=== PATIENT | female | born 1940 | race Hispanic/Latino ===

== ENCOUNTER 2017-09-24 12:30 | Emergency (ER) | payer OTHER ==
[~2017-09-24 12:30] MED LIST: ALEN70TA47 PO; ATOR10 PO; BIFI4CAP PO; CEFD300C3 PO; OMEP40CA37 PO; TRAM50TA4 PO; VALS80TA2 PO
[2017-09-24] MEDS ORDERED: NITROGLYCERIN 0.4 MG SL TAB SL ONE (12:56)
[2017-09-24 13:02] LABS: BASOPHILS % (AUTO) 0.9 % (0.0-5.0); EOSINOPHILS % (AUTO) 17.5 % (0.0-8.0); LYMPHOCYTES % (AUTO) 15.1 % (21.0-51.0); MEAN CORPUSCULAR HEMOGLOBIN 32.1 pg (27.0-33.0); MEAN CORPUSCULAR HGB CONC 34.6 g/dL (32.0-36.0); MEAN CORPUSCULAR VOLUME 92.6 fL (79-99); MONOCYTES % (AUTO) 8.6 % (3.0-13.0); NEUTROPHILS % (AUTO) 57.9 % (40.0-77.0); PLATELET COUNT (AUTO) 214 K/uL (130-400); RED BLOOD CELL COUNT(AUTO) 4.21 MIL/uL (4.00-5.50); RED CELL DISTRIBUTION WIDTH 13.8 % (11.0-15.5); WHITE BLOOD COUNT (AUTO) 9.9 K/uL (4.8-10.8)
[2017-09-24 13:12] LABS: CREATININE 0.8 mg/dL (0.5-1.5)
[2017-09-24 13:17] LABS: ALBUMIN 3.5 g/dL (3.5-5.0); BILIRUBIN,TOTAL 0.2 mg/dL (0.2-1.0); TOTAL PROTEIN, SERUM 7.7 g/dL (6.0-8.3)
[2017-09-24] MEDS ORDERED: LABETALOL HCL 5 MG/ML 20ML VIAL IV ONE (13:48)
== END 2017-09-24 14:25 | disposition home or self-care (01) ==
LOC: EDH 12:30
DX: R07.89 Other chest pain (principal); E78.5 Hyperlipidemia, unspecified; I10 Essential (primary) hypertension; K21.9 Gastro-esophageal reflux disease without esophagitis
CPT/HCPCS: 36415; 71045; 80053; 84484; 85025; 93005; 96374; 99285; J3490

== ENCOUNTER 2023-08-06 17:17 | Emergency (ER) | payer OTHER ==
[~2023-08-06] VITALS: Ht 160 cm; Wt 95.3 kg
[~2023-08-06 17:17] MED LIST changes: +ACET-66 PO; -ALEN70TA47 PO; +ASPI-556 PO; -ATOR10 PO; -BIFI4CAP PO; -CEFD300C3 PO; +CIPR500S4 PO; +CYAN-52 PO; +GABA-529 PO; +LOSA50TA64 PO; +NAPR-1023 PO; +OMEP40CA21 PO; -OMEP40CA37 PO; +ONDA4TAB10 PO; +RANI300C PO; +SERT-439 PO; -TRAM50TA4 PO; -VALS80TA2 PO
[2023-08-06] MEDS ORDERED: HYDROCODONE/ACETAMINOPHEN 5/325 MG TAB PO ONE (17:30)
[2023-08-06] MEDS ORDERED: HYDROXYZINE 25 MG TABLET PO ONE (17:30)
[2023-08-06] MEDS ORDERED: MORPHINE 2 MG SYG IVP ONE (18:30)
[2023-08-06] MEDS ORDERED: ACET-2079 PO (18:35)
[2023-08-06] MEDS ORDERED: NAPR-1196 PO (18:35)
[2023-08-06 19:00] VITALS: BP 125/78; PULSE 78; RESP 18; O2SAT 98
== END 2023-08-06 19:14 | disposition home or self-care (01) ==
LOC: EDH 17:17
DX: S62.616A Displaced fracture of proximal phalanx of right little finger, initial encounter for closed fracture (principal); M19.90 Unspecified osteoarthritis, unspecified site; J45.909 Unspecified asthma, uncomplicated; E78.00 Pure hypercholesterolemia, unspecified; I10 Essential (primary) hypertension; Z79.82 Long term (current) use of aspirin; Z79.899 Other long term (current) drug therapy; W01.0XXA Fall on same level from slipping, tripping and stumbling without subsequent striking against object, initial encounter; Y93.89 Activity, other specified; Y92.89 Other specified places as the place of occurrence of the external cause; Y99.8 Other external cause status
CPT/HCPCS: 99284; 26770; 96374; 73130; 73120; J2270

== ENCOUNTER 2025-01-29 14:02 | Observation (INO) | payer OTHER, MEDICAID ==
[~2025-01-29] VITALS: Ht 160 cm; Wt 94.6 kg
[~2025-01-29 14:02] MED LIST changes: -ACET-66 PO; +ALEN70TA80 PO; +AMLO5TAB4 PO; -ASPI-556 PO; +ATOR10 PO; +BALS60OI TP; -CIPR500S4 PO; -CYAN-52 PO; +DOXY100T2 PO; +EMPA10TA PO; +FLUT8AER3 IH; -GABA-529 PO; +LACT1CAP79 PO; +LEVO-70 PO; +LISI10TA24 PO; -LOSA50TA64 PO; -NAPR-1023 PO; -OMEP40CA21 PO; -ONDA4TAB10 PO; +PILOC5 PO; -RANI300C PO
--- NOTE | 2025-01-29 16:35 | HMCIMG ---
EXAM: CR left hip, 3 View. CLINICAL HISTORY: persistent pain unable to bear weight COMPARISON: None provided. FINDINGS: Spondylosis of the visualized lower lumbar spine. Moderate to severe bilateral sacroiliac joint, and mild bilateral hip and pubic symphyseal joint osteoarthritis. There is no displaced fracture or evidence of periostitis. Atherosclerotic vascular calcifications are noted. IMPRESSION: 1. No acute osseous injury. 2. 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 /[place]
--- NOTE | 2025-01-29 18:24 | ERN ---
General Chief Complaint: Upper Extremity Pain/Injury Stated Complaint: LT ARM,HIP,AND LEG PAIN Time Seen by MD: 15:26 Time Seen by Midlevel: 15:26 Source: patient History of Present Illness Initial Comments The patient is an 84-year-old female presenting to the emergency department for evaluation of severe left-sided hip pain. The patient states she was dancing yesterday. However, the pain started after she lifted something heavy. She states the pain starts on her left hip and radiates down her left leg. She is unable to ambulate secondary to pain. She reports having a history of osteoporosis and is taking alendronate. She denies any direct injury to the area. Allergies: Coded Allergies: No Known Allergies (Unverified Allergy, Unknown, 04/16/14) Home Meds Active Scripts Lisinopril (Lisinopril) 10 Mg Tablet, 10 MG PO DAILY, #60 TAB Prov:SOLITARIO [employer]EN [employer]ING C[employer]TER 07/07/24 Amlodipine Besylate (Norvasc 5Mg Tab) 5 Mg Tablet, 5 MG PO DAILY, #60 TAB Prov:SOLITARIO ALLEN [employer] C[employer] 07/07/24 Reported Medications Fluticasone/Salmeterol (Advair Hfa 230-21 Mcg Inhaler) 230 Mcg-21 Mcg/Actuation Hfa.aer.ad, 2 PUFF IH BID, #12 GM 0 Refills 07/04/24 Empagliflozin (Jardiance) 10 Mg Tablet, 1 TAB PO DAILY for 30 Days, #30 TAB 0 Refills 07/04/24 Pilocarpine HCl (Salagen) 5 Mg Tab, 1 TAB PO BID for 30 Days, #90 TAB 0 Refills 07/04/24 Atorvastatin Calcium (LIPITOR) 10 Mg Tab, 1 TAB PO HS for 30 Days, #30 TAB 0 Refills 07/04/24 Sertraline HCl (Sertraline HCl) 50 Mg Tablet, 50 MG PO DAILY, TAB 09/20/18 Discontinued Reported Medications Alendronate Sodium (Alendronate Sodium) 70 Mg Tablet, 1 TAB PO QWEEK for 28 Days, #4 TAB 0 Refills in the morning, at least 30 minutes before the first food, beverage, or medication of the day 07/04/24 Discontinued Scripts Levofloxacin (Levofloxacin) 500 Mg Tablet, 1 TAB PO DAILY for 7 Days, #7 TAB 0 Refills Prov:SOLITARIO [employer]EN [employer] 07/07/24 Doxycycline Hyclate (Doxycycline Hyclate) 100 Mg Tablet, 100 MG PO BID, #8 TAB Prov:SOLITARIO ALLEN [employer] C[employer] 07/07/24 Lactobacillus Rhamnosus GG (Culturelle) 15 Billion Cell Cap.sprink, 1 EACH PO DAILY, #60 CAP.SPRINK Prov:SOLITARIO ALLEN [employer] 07/07/24 Balsam [place] Oil (Venelex Ointment) 60 Gm Oint...g., 0 GM TP BID, #60 TUBE bid to affected area Prov:SOLITARIO ALLEN P[employer]ING C[employer]TER 07/07/24 Past Medical History Past Medical History: Arthritis, Asthma, High Cholesterol, Hypertension Past Surgical History: None Social History Social History: Negative Female( History) History: Not Applicable ROS Dictation CONSTITUTIONAL: Negative except for HPI HEAD/FACE: Negative except for HPI EENT: Negative except for HPI RESPIRATORY: Negative except for HPI GASTROINTESTINAL/ABDOMINAL: Negative except for HPI GENITOURINARY: Negative except for HPI MUSCULOSKELETAL: Negative except for HPI INTEGUMENTARY: Negative except for HPI NEUROLOGICAL/PSYCH: Negative except for HPI HEMATOLOGIC/LYMPHATIC: Negative except for HPI All Systems Negative, Except as noted above. 13 point review of systems assessed and all negative except for above. Physical Exam Physical Exam Dictation PHYSICAL EXAM: GENERAL: alert,, awake oriented x 3 HEENT: EOMI, Sclera non icteric, moist mucosa NECK: Supple, no JVD, trachea midline LUNGS: Clear breath sounds bilaterally. No wheezes HEART: Regular rate and rhythm. Normal S1 and S2, without murmurs ABD: Abdomen soft, nontender. Bowel sounds present EXT: No clubbing or cyanosis, NEURO: Alert and oriented to person, follows commands Results Laboratory and Microbiology Lab and Micro Result Laboratory Tests Test 01/29/25 18:19 White Blood Count 12.9 K/uL (4.8-10.8) H Red Blood Count 3.80 MIL/uL (4.00-5.50) L Hemoglobin 12.0 g/dL (12.0-16.0) Hematocrit 35.6 % (36-48) L Mean Corpuscular Volume 93.7 fL (79-99) Mean Corpuscular Hemoglobin 31.6 pg (27.0-33.0) Mean Corpuscular Hemoglobin Concent 33.7 g/dL (32.0-36.0) Red Cell Distribution Width 13.5 % (11.0-15.5) Platelet Count 172 K/uL (130-400) Mean Platelet Volume 12.4 fL (7.5-10.5) H Immature Granulocyte % (Auto) 0.5 % (0-1) Neutrophils (%) (Auto) 74.5 % (40.0-77.0) Lymphocytes (%) (Auto) 14.9 % (21.0-51.0) L Monocytes (%) (Auto) 9.2 % (3.0-13.0) Eosinophils (%) (Auto) 0.7 % (0.0-8.0) Basophils (%) (Auto) 0.2 % (0.0-5.0) Neutrophils # (Auto) 9.6 K/uL (1.8-7.7) H Lymphocytes # (Auto) 1.9 K/uL (1.0-4.8) Monocytes # (Auto) 1.2 K/uL (0.1-1.0) H Eosinophils # (Auto) 0.09 K/uL (0.00-0.70) Basophils # (Auto) 0.03 K/uL (0.00-0.20) Absolute Immature Granulocyte (auto 0.06 K/uL (0-1) Nucleated Red Blood Cells 0.0 % (0.0-0.19) Sodium Level 142 mmol/L (136-145) Potassium Level 3.6 mmol/L (3.5-5.1) Chloride Level 104 mmol/L (101-111) Carbon Dioxide Level 29 mmol/L (21-32) Blood Urea Nitrogen 15 mg/dL (7-18) Creatinine 0.8 mg/dL (0.5-1.0) Glomerular Filtration Rate Calc 74 mL/min (>90) Random Glucose 123 mg/dL (70-105) H Hemoglobin A1c 6.0 % (4.0-6.0) Estimated Average Glucose (eAG) 126 mg/dL (70-126) Total Calcium 9.1 mg/dL (8.5-10.1) Magnesium Level 1.70 mg/dL (1.80-2.40) L Troponin I High Sensitivity 12 ng/L (4-50) B-Type Natriuretic Peptide 233 pg/mL (0-100) H Labs Reviewed?: Yes EKG/XRAY/US/CT/MRI CT Scan Comment REASON: Herniated disc ? lumbar radiculopathy ORDERING PHYSICIAN: AIME RAMIREZ MD PROCEDURE: L SPIN WO - CT LUMBAR SPINE W/O CONTRAST EXAM: CT Lumbar Spine Without IV Contrast CLINICAL HISTORY: Patient presents with suspected herniated disc and lumbar radiculopathy. TECHNIQUE: Spiral axial CT images through the lumbar spine were acquired, reconstructed in axial and sagittal projections, and imaged using soft tissue and bone algorithms. Reformatted/MPR images were performed. CT scan is done according to ALARA (As Low as Reasonably Achievable). CONTRAST: None. COMPARISON: None provided. FINDINGS: No acute fracture. Normal lordotic curvature. Normal vertebral body and disc heights. Mild diffuse osteopenia. Moderate lumbar spondylosis with multilevel marginal osteophytes, facet arthropathy and degenerative disc disease. Grade I degenerative retrolisthesis of L1 over L2. Grade I degenerative anterolisthesis of L5 over S1. The surrounding soft tissues are unremarkable. Individual spinal levels are described as follows: T12-L1: No disc bulge or herniation. No neural foraminal, lateral recess or spinal canal stenosis. L1-L2: 4 mm diffuse disc bulge. Moderate right lateral recess and neural foraminal stenosis. No spinal canal stenosis. L2-L3: 4 mm diffuse disc bulge. Mild bilateral lateral recess and neural foramina stenosis. Mild spinal canal stenosis. L3-L4: 3-4 mm diffuse disc bulge with 5 mm postero-central disc protrusion causing thecal sac indentation. Bilateral ligamentum flavum and facet hypertrophy. Moderate bilateral lateral recess and mild bilateral neural foraminal stenosis. Mild spinal canal stenosis. L4-L5: 4 mm diffuse disc bulge. Mild bilateral lateral recess and neural foraminal stenosis. No spinal canal stenosis. L5-S1: 2 mm diffuse disc bulge. No lateral recess, neural foraminal or spinal canal stenosis. Atheromatous vascular calcification in the intra-abdominal aorta. Incidental uncomplicated colonic diverticulosis and mild cystitis. IMPRESSIONS: Moderate lumbar spondylosis with multilevel marginal osteophytes, facet arthropathy and degenerative disc disease. Grade I degenerative retrolisthesis of L1 over L2. Grade I degenerative anterolisthesis of L5 over S1. Mild diffuse osteopenia. Diffuse disc bulges from L1-L2 through L5-S1. 5 mm postero-central disc protrusion at L3-L4. Moderate right lateral recess and neural foraminal stenosis at L1-L2. Mild bilateral lateral recess and neural foraminal stenosis at L2-L3. Moderate bilateral lateral recess and mild bilateral neural foraminal stenosis at L3-L4. Mild bilateral lateral recess and neural foraminal stenosis at L4-L5. Mild spinal canal stenosis at L2-L3 and L3-L4. Incidental uncomplicated colonic diverticulosis and mild cystitis. /[place] DICTATED BY: EMILIANA HARDIN Jr., MD DATE: 01/30/2527 ELECTRONICALLY SIGNED BY: EMILIANA HARDIN Jr., MD DATE: 01/30/2527 [facility] The patient is an 84-year-old female presenting to the emergency department for evaluation of severe left-sided hip pain. The patient states she was dancing yesterday. However, the pain started after she lifted something heavy. She states the pain starts on her left hip and radiates down her left leg. She is unable to ambulate secondary to pain. She reports having a history of osteoporosis and is taking alendronate. She denies any direct injury to the area. On physical examination the patient has restricted range motion of the left hip secondary to pain. She has some mild swelling to her left lower extremity. Distal pulses intact. An x-ray was performed which reveals no acute osseous injury however there is moderate to severe bilateral sacroiliac joint osteoarthritis with mild bilateral hip and pubic symphysis osteoarthritis. This could explain her current symptoms however the patient is unable to ambulate so I have ordered a CT scan of the pelvis without contrast to rule out a hairline fracture. During my repeat examination the family member at bedside was now concerned that she has been noticing an increase in swelling to the patient's lower extremities. I went ahead and ordered basic blood work including cardiac enzymes. Blood work is pending at this time we will transition care to incoming physician ED Course Orders Procedure Category Date Status Time Hip Unilat 2-3vw Left RAD 01/29/25 Resulted 15:36 Morphine 2mg Syg PHA 01/29/25 Complete (Morphine 2mg Syg) 16:00 Cbc With Differential LAB 01/29/25 Complete 17:23 Basic Metabolic Panel LAB 01/29/25 Complete 17:23 B-Type Natriuretic LAB 01/29/25 Complete Peptide 17:23 Troponin I High LAB 01/29/25 Complete Sensitivity 17:23 Magnesium LAB 01/29/25 Complete 17:23 Ct Pelvis W/O Contrast CT 01/29/25 Resulted 17:23 Ketorolac PHA 01/29/25 Complete Tromethamine 30mg/Ml 19:30 Methylprednisolone PHA 01/29/25 Complete Succ 40mg (Solu-Medro 19:30 Cyclobenzaprine Hcl PHA 01/29/25 Complete (Cyclobenzaprine Hcl 19:30 Current Medications Medications (Trade) Dose Ordered Sig/Flavio Route PRN Reason Start Time Stop Time Status Last Admin Dose Admin Cyclobenzaprine HCl (Cyclobenzaprine HCl) 5 mg ONCE PO 01/29/25 19:30 01/29/25 23:30 DC 01/29/25 19:34 Ketorolac Tromethamine (toRADol) 30 mg ONCE IVP 01/29/25 19:30 01/29/25 21:27 DC 01/29/25 19:34 Methylprednisolone Sodium Succinate (Solu-medROL 40MG) 40 mg ONCE IVP 01/29/25 19:30 01/29/25 21:30 DC 01/29/25 19:34 Morphine Sulfate (morPHINE 2MG SYG) 2 mg ONCE IM 01/29/25 16:00 01/29/25 20:00 DC 01/29/25 15:50 Vital Signs Date Time Temp Pulse Resp B/P (MAP) Pulse Ox O2 Delivery O2 Flow Rate FiO2 01/29/25 17:31 98.4 91 20 146/70 98 Room Air* 0 21 01/29/25 14:04 98.4 91 20 146/70 98 Room Air 6,40 pm- patient signed out to me by AM physician Dr. Valiente. Dependently reviewed the history and verified the labs and x-rays. Labs showed a white count of 12.9 hemoglobin of 12 next BNP 7 was relatively within normal limits glucose was 126 magnesium was 1.7. Patient had a pelvic CT that was pending at the time of sign-out 7:[address] pelvis still pending Patient lives by herself so I recommended admission and evaluation by physical therapy and perhaps also see if the patient needs any DME like wheelchair etcetera Patient and daughters were agreeable . My evaluation I firmly believe that patient had a lumbar pathology with the herniated discs and perhaps sciatica and radiculopathy and hence lumbar CT was also requested. 9.11 pm- [facility] accepted the patient for admission to hospitalist group. Problem List Problem Lists: (1) Intractable back pain (2) Lumbar back pain with radiculopathy affecting left lower extremity (3) Lumbar paraspinal muscle spasm DX & DISP Disposition: Inpatient Departure Impression: Primary Impression: Lumbar back pain with radiculopathy affecting left lower extremity Additional Impressions: Intractable back pain, Lumbar paraspinal muscle spas m Condition: Stable Additional Instructions: Patient was informed of all the diagnostic labs and procedures conducted in the emergency room today and demonstrated understanding of the results. I personally reviewed and interpreted all the diagnostic exams performed in the ER today. The patient will be admitted to the hospital for further treatment and evaluation. Disposition-admit to facility Condition-stable/guarded Course-uncertain at this time Pain status-decreased Assessment-exam unchanged Admission Certification- I certify that the patients status is appropriate and is based on my best clinical judgment and the patient's condition as documented in the medical records Referrals: CLARA MCKINNEY DO (PCP) I have reviewed the case, and I agree with, Diagnosis and Plan JESUS FERREIRA Jan 29, 2025 18:24 AIME RAMIREZ MD Jan 29, 2025 20:56
[2025-01-29 18:28] LABS: IMMATURE GRANULOCYTE ABSOLUTE 0.06 K/uL (0-1); NUCLEATED RED BLOOD CELLS 0.0 % (0.0-0.19); PLATELET COUNT (AUTO) 172 K/uL (130-400); RED BLOOD CELL COUNT(AUTO) 3.80 MIL/uL (4.00-5.50); RED CELL DISTRIBUTION WIDTH 13.5 % (11.0-15.5); WHITE BLOOD COUNT (AUTO) 12.9 K/uL (4.8-10.8)
[2025-01-29 18:38] LABS: CREATININE 0.8 mg/dL (0.5-1.0); GLOMERULAR FILTR. RATE CALC 74.0 mL/min (>90); GLUCOSE,RANDOM 123.0 mg/dL (70-105); SODIUM SERUM 142.0 mmol/L (136-145); UREA NITROGEN, BLOOD 15.0 mg/dL (7-18)
[2025-01-29] MEDS: CYCLOBENZAPRINE HCL 10 MG TABLET PO SCH (19:34)
[2025-01-29] MEDS: Solu-medROL 40MG VIAL IVP SCH (19:34)
--- NOTE | 2025-01-29 19:36 | HMCIMG ---
EXAM: CT Pelvis without Intravenous Contrast. CLINICAL HISTORY: R/O OCCULT FRACTURE TECHNIQUE: Axial computed tomography images of the pelvis without without intravenous contrast. CONTRAST: None. COMPARISON: None provided. FINDINGS: HIP JOINTS: No dislocation. The joint spaces are normal. BONES: Moderate degenerative changes. Involving both hips, both sacroiliac joints left side greater than right No evidence of occult fracture SOFT TISSUES: No hematoma IMPRESSION: 1. Moderate degenerative changes. 2. No evidence of occult fracture 3. No hematoma /[place]
--- NOTE | 2025-01-29 21:23 | HP ---
[facility] HISTORY AND PHYSICAL Date of Service: Jan 29, 2025 Time of Service: 21:23 CLARA MCKINNEY DO (PCP) Attending/supervising physicians: Dr. Desai and Dr. Jing Menendez HISTORY OF PRESENT ILLNESS: Ms. Glez is an 84-year-old female with hx of hypertension, hyperlipidemia, obesity, asthma, osteoporosis, and osteoarthritis who [place] [facility] [place] evaluation of severe mid low back pain and left-sided hip pain onset yesterday after she lifted something heavy. She stated the pain starts on her low back and radiated to left hip down her left leg. She is unable to ambulate secondary to pain. She denied any direct injury to the area. ED provider reported that on physical examination the patient has restricted range motion of the left hip secondary to pain. She has some mild swelling to her left lower extremity. Distal pulses intact. An x-ray was performed which reveals no acute osseous injury however there is moderate to severe bilateral sacroiliac joint osteoarthritis with mild bilateral hip and pubic symphysis osteoarthritis. During my repeat examination the family member at bedside was now concerned that she has been noticing an increase in swelling to the patient's lower extremities. CT pelvis: Moderate degenerative changes. No evidence of occult fracture. No hematoma. Left hip x-ray: 1. No acute osseous injury. 2. 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 Remarkable lab results: WBCs 12.9, RBC 3.80, hematocrit 35.5, glucose 123, GFR 74, magnesium 1.7, BNP 233. In ED the patient received Flexeril, Solu-Medrol, Toradol, morphine. ED physician reports concerned of the patient's intractable pain. ED physician states the patient lives alone and the patient is not comfortable going home with the pain. ED physician reports the patient was handed off to her and during her evaluation the pain was more to the lower back therefor she ordered a CT lumbar which is pending. She requested patient be admitted to the hospital for observation for intractable lumbar back pain with radiculopathy affecting left lower extremity and lumbar paraspinal muscle spasm. The patient was admitted under the [facility] hospitalist team. I assessed the patient at bedside in ER 1. No family member at bedside. The patient was lying in the stretcher, appeared comfortable, was smiling, eating a sandwich, and appeared in no distress. I informed her of a labs, diagnostics, and plan of care. She verbalized understanding and is in agreement with the plan. Plan and assessment are listed below. REVIEW OF SYSTEMS 12-point ROS reviewed with patient. All pertinent mentioned above. Otherwise negative, noncontributory, non-pertinent. PAST MEDICAL HISTORY: [Hypertension, hyperlipidemia, arthritis, osteoporosis, obesity, asthma, osteoarthritis of the knee ] PAST SURGICAL HISTORY: [Patient denies any history of significant surgery ] PAST SOCIAL HISTORY: [ Currently denies any active smoking or alcohol consumption, uses a rolling walker to walk, lives by herself at home, independent with ADLs] FAMILY HISTORY: [Denies pertinent family history ] Coded Allergies: No Known Allergies (Unverified Allergy, Unknown, 04/16/14) PHYSICAL EXAM GENERAL APPEARANCE: The patient is awake, alert, and oriented, in no acute cardiopulmonary distress. NEUROLOGICAL: Cranial nerves II-XII grossly intact. Motor is 5/5 in bilateral upper and lower extremities proximal to distal. No sensory deficits. HEENT: Face is symmetric. Pupils are equal and reactive. Extraocular movements are intact. NECK: Supple. No JVD. No thyromegaly. No submental, submandibular, pre- /postauricular, occipital or supraclavicular lymphadenopathy. CHEST: Normal chest expansion. No Telemetry. LUNGS: Absence of any rales, rhonchi or any wheezing. CARDIOVASCULAR: Regular. S1 and S2 normal. No appreciable rubs, murmurs or gallops. ABDOMEN: Soft, obese, nontender, and nondistended. There is no rebound, voluntary guarding, or rigidity. : Deferred. No Spence. EXTREMITIES: Non-edematous and not cyanotic. No clubbing. Good capillary refill. SKIN: No skin breakdown. Vital Sign (Last 24 Hours) 01/29/25 17:31 Temp 98.4 Pulse 91 Resp 20 B/P (MAP) 146/70 Pulse Ox 98 O2 Delivery Room Air* O2 Flow Rate 0 FiO2 21 LABS: Laboratory: Test 01/29/25 18:19 Range/Units White Blood Count 12.9 H 4.8-10.8 K/uL Red Blood Count 3.80 L 4.00-5.50 MIL/uL Hemoglobin 12.0 12.0-16.0 g/dL Hematocrit 35.6 L 36-48 % Mean Corpuscular Volume 93.7 79-99 fL Mean Corpuscular Hemoglobin 31.6 27.0-33.0 pg Mean Corpuscular Hemoglobin Concent 33.7 32.0-36.0 g/dL Red Cell Distribution Width 13.5 11.0-15.5 % Platelet Count 172 130-400 K/uL Mean Platelet Volume 12.4 H 7.5-10.5 fL Immature Granulocyte % (Auto) 0.5 0-1 % Neutrophils (%) (Auto) 74.5 40.0-77.0 % Lymphocytes (%) (Auto) 14.9 L 21.0-51.0 % Monocytes (%) (Auto) 9.2 3.0-13.0 % Eosinophils (%) (Auto) 0.7 0.0-8.0 % Basophils (%) (Auto) 0.2 0.0-5.0 % Neutrophils # (Auto) 9.6 H 1.8-7.7 K/uL Lymphocytes # (Auto) 1.9 1.0-4.8 K/uL Monocytes # (Auto) 1.2 H 0.1-1.0 K/uL Eosinophils # (Auto) 0.09 0.00-0.70 K/uL Basophils # (Auto) 0.03 0.00-0.20 K/uL Absolute Immature Granulocyte (auto 0.06 0-1 K/uL Nucleated Red Blood Cells 0.0 0.0-0.19 % Sodium Level 142 136-145 mmol/L Potassium Level 3.6 3.5-5.1 mmol/L Chloride Level 104 101-111 mmol/L Carbon Dioxide Level 29 21-32 mmol/L Blood Urea Nitrogen 15 7-18 mg/dL Creatinine 0.8 0.5-1.0 mg/dL Glomerular Filtration Rate Calc 74 >90 mL/min Random Glucose 123 H 70-105 mg/dL Total Calcium 9.1 8.5-10.1 mg/dL Magnesium Level 1.70 L 1.80-2.40 mg/dL Troponin I High Sensitivity 12 4-50 ng/L B-Type Natriuretic Peptide 233 H 0-100 pg/mL Current Medications Medications (Trade) Dose Ordered Sig/Flavio Route PRN Reason Start Time Stop Time Status Last Admin Dose Admin Acetaminophen (TYLenol 325MG TAB) 650 mg Q6H PRN PO FEVER/MILD PAIN LEVEL 1-3 01/29/25 21:30 02/28/25 21:29 Acetaminophen (TYLenol 650MG SUPPOSITORY) 650 mg Q6H PRN RC FEVER / MILD PAIN 1-3 IF NPO 01/29/25 21:30 02/28/25 21:29 Acetaminophen/ Hydrocodone Bitart (NORco 5/325MG) 1 tab Q6H PRN PO MODERATE PAIN (4-6) 01/29/25 21:30 02/03/25 21:29 Acetaminophen/ Hydrocodone Bitart (NORco 5/325MG) 2 tab Q6H PRN PO SEVERE PAIN (7-10) 01/29/25 21:30 02/03/25 21:29 Cyclobenzaprine HCl (Cyclobenzaprine HCl) 5 mg ONCE PO 01/29/25 19:30 01/29/25 23:30 01/29/25 19:34 5 MG Dextrose (D50w) 50 ml AD PRN IV HYPOGLYCEMIA PROTOCOL 01/29/25 21:30 02/28/25 21:29 Docusate Sodium (COLace 100MG CAP) 100 mg BID PRN PO CONSTIPATION 01/29/25 21:30 02/28/25 21:29 Enoxaparin Sodium (Lovenox) 40 mg DAILY SQ 01/30/25 09:00 03/01/25 08:59 Glucagon (Glucagon 1mg Kit) 1 mg AD PRN IM HYPOGLYCEMIA PROTOCOL 01/29/25 21:30 02/28/25 21:29 Insulin Human Regular (humuLIN R 100 UNIT/ML 3ML) INSULIN SLIDING SCAL... ACHS SQ 01/30/25 07:30 03/01/25 07:29 Ketorolac Tromethamine (toRADol) 30 mg ONCE IVP 01/29/25 19:30 01/29/25 23:30 01/29/25 19:34 30 MG Labetalol HCl (TRANdate 20MG SYG) 10 mg Q2H PRN IV SBP GREATER THAN 160 01/29/25 21:30 02/28/25 21:29 Lactulose (Constulose 20gm/ 30ml Udcup) 20 gm Q6H PRN PO CONSTIPATION 01/29/25 21:30 02/28/25 21:29 Lidocaine (Lidocaine Patch 4%) 1 each DAILY TP 01/30/25 09:00 03/01/25 08:59 Magnesium Sulfate 50 ml @ 0 mls/hr PROTOCOL PRN IV MAGNESIUM PROTOCOL 01/29/25 21:30 02/28/25 21:29 Methylprednisolone Sodium Succinate (Solu-medROL 40MG) 40 mg ONCE IVP 01/29/25 19:30 01/29/25 23:30 01/29/25 19:34 40 MG Morphine Sulfate (morPHINE 2MG SYG) 2 mg ONCE IM 01/29/25 16:00 01/29/25 20:00 DC 01/29/25 15:50 2 MG Ondansetron HCl (zoFRAN 4MG INJ) 4 mg Q6H PRN IVP NAUSEA/VOMITING 01/29/25 21:30 02/28/25 21:29 Potassium Chloride 100 ml @ 100 mls/hr AD PRN IV POTASSIUM PROTOCOL 01/29/25 21:30 02/28/25 21:29 Potassium Chloride (K-Dur/Klor-Con 20meq) 20 meq AD PRN PO POTASSIUM PROTOCOL 01/29/25 21:30 02/28/25 21:29 Potassium Chloride (KCl 10% Elixir 20meq/15ml) 20 meq AD PRN PO POTASSIUM PROTOCOL 01/29/25 21:30 02/28/25 21:29 Temazepam (restORIL 15 MG CAP) 15 mg HS PRN PO INSOMNIA/SLEEP 01/29/25 21:30 02/28/25 21:29 DIAGNOSTICS / RADIOLOGY: [ ] ASSESSMENT: Intractable lumbar back pain with radiculopathy affecting left lower extremity, POA Moderate to severe bilateral sacroiliac joint osteoarthritis, with mild bilateral hip and pubic symphyseal osteoarthritis, per left hip x-ray on 01/29/2025 Left leg edema, POA Lumbar paraspinal muscle spasm Leukocytosis Anemia Hyperglycemia Hypomagnesemia Acute on chronic kidney disease, GFR 74 Fluid overload/ elevated BNP Uncontrolled hypertension, POA Obesity, BMI 35.4 Chronic problem list: Hypertension, hyperlipidemia, arthritis, osteoporosis, obe sity, asthma, osteoarthritis of the knee PLAN: -Admit to medical floor with continuous telemetry monitoring and fall precautions. -Follow pending CT lumbar results. -Physical therapy to evaluate and treat. -Start Decadron 4 mg IV daily. (ED administered Solu-Medrol 40 mg IV) -Lidocaine patch 4% to lower back. -Obtain venous Doppler of left lower extremity. -Obtain a cath UA. -Follow WBCs. -PRN medications for: pain management, fever, N/V, constipation, hypertension. -Oxygen supplement as needed to maintain oxygen levels equal to or greater than 92% -Strict I&O. -Fluid restriction 1,200 mls in 24 hours. -Blood pressure checks every 4 hours and as needed. -Reconcile home medications once available. -Glucometer checks before meals and at bedtime with insulin regular sliding scale. -Blood pressure checks every 4 hours and as needed. - Monitor renal and liver function. -Monitor electrolytes and treat accordingly PRN -AM labs. -GI and DVT prophylaxis -Further plan/orders per hospitalization course. ADVANCED CARE PLANNING 1. Which of the following were discussed? Hospice Care - No Therapeutic options - Yes Advance Directives - Yes Other discussions - 2. Discussed with who? Patient 3. Voluntary nature of this service was explained to the patient? Yes 4. Amount of time spent - _ Over 35 minutes 5. Reviewed by Physician? (if this service was performed by [facility]) Yes ATTESTATION BY PHYSICIAN I have seen and examined the patient. I reviewed the documentation, medical decision making, and treatment plan as noted by the mid-level provider above. I agree with the findings and plan of care. [facility] Jan 29, 2025 21:23
[2025-01-29] MEDS ORDERED: MAGNESIUM 2GM PREMIX 50ML 50 ML IV PRN (21:30)
[2025-01-29] MEDS ORDERED: HYDROcodone/APAP 5/325 1 TAB TABLET PO PRN ×2 (21:30)
[2025-01-29] MEDS ORDERED: LACTULOSE 20 GM/30 ML UDCUP PO PRN (21:30)
[2025-01-29] MEDS ORDERED: DEXTROSE 50%-WATER 50 ML DISP.SYRIN IV PRN (21:30)
[2025-01-29] MEDS ORDERED: GLUCAGON 1MG KIT 1 MG ML IM PRN (21:30)
[2025-01-29] MEDS ORDERED: PoTASSium chl 10% ELIXIR 20MEQ 20 MEQ/15 ML UDCUP PO PRN (21:30)
--- NOTE | 2025-01-29 21:39 | NUR ---
FAMILY TO BRING HOME MEDICATIONS
[2025-01-29] MEDS: MAGNESIUM 2GM PREMIX 50ML 50 ML IV ONE (22:09)
--- NOTE | 2025-01-29 23:29 | HMCIMG ---
EXAM: CT Lumbar Spine Without IV Contrast CLINICAL HISTORY: Patient presents with suspected herniated disc and lumbar radiculopathy. TECHNIQUE: Spiral axial CT images through the lumbar spine were acquired, reconstructed in axial and sagittal projections, and imaged using soft tissue and bone algorithms. Reformatted/MPR images were performed. CT scan is done according to ALARA (As Low as Reasonably Achievable). CONTRAST: None. COMPARISON: None provided. FINDINGS: No acute fracture. Normal lordotic curvature. Normal vertebral body and disc heights. Mild diffuse osteopenia. Moderate lumbar spondylosis with multilevel marginal osteophytes, facet arthropathy and degenerative disc disease. Grade I degenerative retrolisthesis of L1 over L2. Grade I degenerative anterolisthesis of L5 over S1. The surrounding soft tissues are unremarkable. Individual spinal levels are described as follows: T12-L1: No disc bulge or herniation. No neural foraminal, lateral recess or spinal canal stenosis. L1-L2: 4 mm diffuse disc bulge. Moderate right lateral recess and neural foraminal stenosis. No spinal canal stenosis. L2-L3: 4 mm diffuse disc bulge. Mild bilateral lateral recess and neural foramina stenosis. Mild spinal canal stenosis. L3-L4: 3-4 mm diffuse disc bulge with 5 mm postero-central disc protrusion causing thecal sac indentation. Bilateral ligamentum flavum and facet hypertrophy. Moderate bilateral lateral recess and mild bilateral neural foraminal stenosis. Mild spinal canal stenosis. L4-L5: 4 mm diffuse disc bulge. Mild bilateral lateral recess and neural foraminal stenosis. No spinal canal stenosis. L5-S1: 2 mm diffuse disc bulge. No lateral recess, neural foraminal or spinal canal stenosis. Atheromatous vascular calcification in the intra-abdominal aorta. Incidental uncomplicated colonic diverticulosis and mild cystitis. IMPRESSIONS: Moderate lumbar spondylosis with multilevel marginal osteophytes, facet arthropathy and degenerative disc disease. Grade I degenerative retrolisthesis of L1 over L2. Grade I degenerative anterolisthesis of L5 over S1. Mild diffuse osteopenia. Diffuse disc bulges from L1-L2 through L5-S1. 5 mm postero-central disc protrusion at L3-L4. Moderate right lateral recess and neural foraminal stenosis at L1-L2. Mild bilateral lateral recess and neural foraminal stenosis at L2-L3. Moderate bilateral lateral recess and mild bilateral neural foraminal stenosis at L3-L4. Mild bilateral lateral recess and neural foraminal stenosis at L4-L5. Mild spinal canal stenosis at L2-L3 and L3-L4. Incidental uncomplicated colonic diverticulosis and mild cystitis. /[place]
--- NOTE | 2025-01-29 23:40 | NUR ---
SONO Kymab ADVISES PATIENT REFUSED TO HAVE VENOUS DOPPLER DONE
[2025-01-30] VITALS (7 sets, daily range): BP systolic 107–140; BP diastolic 57–70; PULSE 63–97; RESP 18–20; TEMP 98–98.2; O2SAT 97
[2025-01-30] MEDS: LIDOCAINE 4% ADH..PATCH TP SCH (00:21)
--- NOTE | 2025-01-30 02:00 | NUR ---
ER ADMIT PATIENT AWAKE AND ALERT. VOICES ALL NEEDS, NO COMPLAINTS OF PAIN VOICED AT THIS TIME. VITALS STABLE. AFEBRILE. RESP EVEN AND UNLABORED. NO SOB NOTED, ON ROOM AIR. ORIENTATED TO HOSPITAL AND ROOM. UA COLLECTED USING STERILE TECHNIQUE AND SENT TO LAB. PATIENT TOLERATED WELL. NO COMPLAINTS OF PAIN VOICED AT THIS TIME. REPOSITIONED FOR COMFORT. HOB ELEVATED. CALL LIGHT WITHIN REACH. NO SIGNS OF DISTRESS NOTED UPON EXITING THE ROOM. Addendum: 01/30/25 at 0220 by NISHA SARAVIA RN RN Amended: Links added.
[2025-01-30 02:30] LABS: APPEARANCE,URINE CLEAR (CLEAR); GLUCOSE, URINE (UA) >=1000 mg/dL (NEGATIVE); LEUKOCYTE ESTERASE ,URINE NEGATIVE Leu/uL (NEGATIVE); NITRATE,URINE NEGATIVE (NEGATIVE); OCCULT BLOOD,URINE +- (TRACE) (NEGATIVE)
[2025-01-30 02:31] LABS: ADD UA MICROSCOPIC YES
[2025-01-30 02:58] LABS: SQUAMOUS EPITHELIAL CELL,UR RARE /HPF (0-2)
[2025-01-30 05:45] LABS: NUCLEATED RED BLOOD CELLS 0.0 % (0.0-0.19); PLATELET COUNT (AUTO) 264.0 K/uL (130-400); RED BLOOD CELL COUNT(AUTO) 3.59 MIL/uL (4.00-5.50); RED CELL DISTRIBUTION WIDTH 13.3 % (11.0-15.5); WHITE BLOOD COUNT (AUTO) 10.8 K/uL (4.8-10.8)
[2025-01-30 06:17] LABS: CREATININE 0.9 mg/dL (0.5-1.0); GLOMERULAR FILTR. RATE CALC 64.0 mL/min (>90); GLUCOSE,RANDOM 213.0 mg/dL (70-105); PHOSPHORUS 2.7 mg/dL (2.5-4.9); SODIUM SERUM 140.0 mmol/L (136-145); UREA NITROGEN, BLOOD 19.0 mg/dL (7-18)
[2025-01-30] MEDS: PoTASSium chloRIDE 20MEQ ER 20 MEQ ERTAB PO PRN (06:33)
[2025-01-30] MEDS: ENOXAPARIN SODIUM 40 MG/0.4 ML SYRINGE SQ SCH (08:46)
[2025-01-30] MEDS ORDERED: LIDOCAINE 4% ADH..PATCH TP SCH (09:00)
--- NOTE | 2025-01-30 12:58 | PN ---
[facility] PROGRESS NOTE Date of Service: Jan 30, 2025 Time of Service: 12:[address] Desai SUBJECTIVE: [01/29 Ms. Glez is an 84-year-old female with hx of hypertension, hyperlipidemia, obesity, asthma, osteoporosis, and osteoarthritis who presented to [facility] ED for evaluation of severe mid low back pain and left-sided hip pain onset yesterday after she lifted something heavy. She stated the pain starts on her low back and radiated to left hip down her left leg. She is unable to ambulate secondary to pain. She denied any direct injury to the area. ED provider reported that on physical examination the patient has restricted range motion of the left hip secondary to pain. She has some mild swelling to her left lower extremity. Distal pulses intact. An x-ray was performed which reveals no acute osseous injury however there is moderate to severe bilateral sacroiliac joint osteoarthritis with mild bilateral hip and pubic symphysis osteoarthritis. During my repeat examination the family member at bedside was now concerned that she has been noticing an increase in swelling to the patient's lower extremities. CT pelvis: Moderate degenerative changes. No evidence of occult fracture. No hematoma. Left hip x-ray: 1. No acute osseous injury. 2. 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 Remarkable lab results: WBCs 12.9, RBC 3.80, hematocrit 35.5, glucose 123, GFR 74, magnesium 1.7, BNP 233. In ED the patient received Flexeril, Solu-Medrol, Toradol, morphine. ED berto flynn reports concerned of the patient's intractable pain. ED physician states the patient lives alone and the patient is not comfortable going home with the pain. ED physician reports the patient was handed off to her and during her evaluation the pain was more to the lower back therefor she ordered a CT lumbar which is pending. She requested patient be admitted to the hospital for observation for intractable lumbar back pain with radiculopathy affecting left lower extremity and lumbar paraspinal muscle spasm. The patient was admitted under the [facility] hospitalist team. 01/30 patient was seen by nurse practitioner and physician during rounding in room 326. Lumbar spine CT showed moderate lumbar spondylosis with multi level marginal osteophytes, facet arthroplasty and degenerative disc changes. Grade 1 degenerative retrolisthesis of L1 over L2. Mild diffuse osteopenia disc bulges from L1-L2 through L5-S1 and disc protrusion L3-L4. There is multiple neuro foraminal stenosis and spinal stenosis. Incidental and complicated colonic diverticulosis and mild sized cystitis. Regarding the results patient stated she has been having a chronic back pain and is not planning to do anything about back her only concern this moment is to shooting pain that goes from her left lower back and shoots down the left leg. During examination patient is showing with the symptoms of] sciatica pain. We will prescribe cyclobenzaprine 10 mg t.i.d. and prednisolone 40 mg b.i.d. for now. Anticipated discharge within 24 hours. We will continue to monitor patient in the meantime. A.m. labs. REVIEW OF SYSTEMS 12-point ROS reviewed with patient. All pertinent mentioned above. Otherwise negative, noncontributory, non-pertinent. PHYSICAL EXAM GENERAL APPEARANCE: The patient is awake, alert, and oriented, in no acute cardiopulmonary distress. NEUROLOGICAL: Cranial nerves II-XII grossly intact. Motor is 5/5 in bilateral upper and lower extremities proximal to distal. No sensory deficits. HEENT: Face is symmetric. Pupils are equal and reactive. Extraocular movements are intact. NECK: Supple. No JVD. No thyromegaly. No submental, submandibular, pre- /postauricular, occipital or supraclavicular lymphadenopathy. CHEST: Normal chest expansion. No Telemetry. LUNGS: Absence of any rales, rhonchi or any wheezing. CARDIOVASCULAR: Regular. S1 and S2 normal. No appreciable rubs, murmurs or gallops. ABDOMEN: Soft, obese, nontender, and nondistended. There is no rebound, voluntary guarding, or rigidity. : Deferred. No Spence. EXTREMITIES: Non-edematous and not cyanotic. No clubbing. Good capillary refill. SKIN: No skin breakdown. Vital Signs (last 8hr) Date Time Temp Pulse Resp B/P (MAP) Pulse Ox O2 Delivery O2 Flow Rate FiO2 01/30/25 11:45 98.1 70 18 107/68 97 Room Air 01/30/25 08:46 97 Room Air* 0 21 01/30/25 07:40 98.1 63 18 109/57 97 Room Air LABS: Laboratory: Test 01/30/25 10:47 01/30/25 05:28 01/30/25 02:00 01/29/25 18:19 Range/Units Whole Blood Glucose 218 H 70-110 MG/DL White Blood Count 10.8 4.8-10.8 K/uL Red Blood Count 3.59 L 4.00-5.50 MIL/uL Hemoglobin 11.1 L 12.0-16.0 g/dL Hematocrit 33.7 L 36-48 % Mean Corpuscular Volume 93.9 79-99 fL Mean Corpuscular Hemoglobin 30.9 27.0-33.0 pg Mean Corpuscular Hemoglobin Concent 32.9 32.0-36.0 g/dL Red Cell Distribution Width 13.3 11.0-15.5 % Platelet Count 264 # 130-400 K/uL Mean Platelet Volume 10.8 H 7.5-10.5 fL Nucleated Red Blood Cells 0.0 0.0-0.19 % Sodium Level 140 136-145 mmol/L Potassium Level 3.8 3.5-5.1 mmol/L Chloride Level 106 101-111 mmol/L Carbon Dioxide Level 26 21-32 mmol/L Blood Urea Nitrogen 19 H 7-18 mg/dL Creatinine 0.9 0.5-1.0 mg/dL Glomerular Filtration Rate Calc 64 >90 mL/min Random Glucose 213 #H 70-105 mg/dL Hemoglobin A1c 5.8 4.0-6.0 % Estimated Average Glucose (eAG) 120 70-126 mg/dL Total Calcium 9.2 8.5-10.1 mg/dL Phosphorus Level 2.7 2.5-4.9 mg/dL Magnesium Level 2.60 H 1.80-2.40 mg/dL Thyroid Stimulating Hormone (TSH) 1.07 # 0.36-3.74 uIU/mL Urine Color LIGHT-YELLOW YELLOW Urine Appearance CLEAR CLEAR Urine pH 5.0 5.0-8.0 Urine Specific [place] 1.017 1.001-1.031 Urine Protein NEGATIVE NEGATIVE mg/dL Urine Glucose (UA) >=1000 H NEGATIVE mg/dL Urine Ketones NEGATIVE NEGATIVE mg/dL Urine Occult Blood +- (TRACE) H NEGATIVE Urine Nitrate NEGATIVE NEGATIVE Urine Bilirubin NEGATIVE NEGATIVE mg/dL Urine Urobilinogen 0.2 0.2-1.0 mg/dL Urine Leukocyte Esterase NEGATIVE NEGATIVE Froylan/uL Urine RBC 0-1 0-1 /HPF Urine WBC 0-1 0-1 /HPF Urine Squamous Epithelial Cells RARE 0-2 /HPF Urine Bacteria FEW None Seen /HPF Immature Granulocyte % (Auto) 0.5 0-1 % Neutrophils (%) (Auto) 74.5 40.0-77.0 % Lymphocytes (%) (Auto) 14.9 L 21.0-51.0 % Monocytes (%) (Auto) 9.2 3.0-13.0 % Eosinophils (%) (Auto) 0.7 0.0-8.0 % Basophils (%) (Auto) 0.2 0.0-5.0 % Neutrophils # (Auto) 9.6 H 1.8-7.7 K/uL Lymphocytes # (Auto) 1.9 1.0-4.8 K/uL Monocytes # (Auto) 1.2 H 0.1-1.0 K/uL Eosinophils # (Auto) 0.09 0.00-0.70 K/uL Basophils # (Auto) 0.03 0.00-0.20 K/uL Absolute Immature Granulocyte (auto 0.06 0-1 K/uL Troponin I High Sensitivity 12 4-50 ng/L B-Type Natriuretic Peptide 233 H 0-100 pg/mL Current Medications Medications (Trade) Dose Ordered Sig/Flavio Route PRN Reason Start Time Stop Time Status Last Admin Dose Admin Acetaminophen (TYLenol 325MG TAB) 650 mg Q6H PRN PO FEVER/MILD PAIN LEVEL 1-3 01/29/25 21:30 02/28/25 21:29 Acetaminophen (TYLenol 650MG SUPPOSITORY) 650 mg Q6H PRN RC FEVER / MILD PAIN 1-3 IF NPO 01/29/25 21:30 02/28/25 21:29 Acetaminophen/ Hydrocodone Bitart (NORco 5/325MG) 1 tab Q6H PRN PO MODERATE PAIN (4-6) 01/29/25 21:30 02/03/25 21:29 Acetaminophen/ Hydrocodone Bitart (NORco 5/325MG) 2 tab Q6H PRN PO SEVERE PAIN (7-10) 01/29/25 21:30 02/03/25 21:29 Cyclobenzaprine HCl (Cyclobenzaprine HCl) 5 mg ONCE PO 01/29/25 19:30 01/29/25 23:30 DC 01/29/25 19:34 5 MG Cyclobenzaprine HCl (Cyclobenzaprine HCl) 10 mg TID PO 01/30/25 14:00 03/01/25 13:59 UNV Dexamethasone Sodium Phosphate (dexaMETHasone 4MG/ML 1ML VIAL) 4 mg DAILY05 IV 01/30/25 05:00 01/30/25 12:51 DC 01/30/25 05:03 4 MG Dextrose (D50w) 50 ml AD PRN IV HYPOGLYCEMIA PROTOCOL 01/29/25 21:30 02/28/25 21:29 Docusate Sodium (COLace 100MG CAP) 100 mg BID PRN PO CONSTIPATION 01/29/25 21:30 02/28/25 21:29 Enoxaparin Sodium (Lovenox) 40 mg DAILY SQ 01/30/25 09:00 03/01/25 08:59 01/30/25 08:46 40 MG Glucagon (Glucagon 1mg Kit) 1 mg AD PRN IM HYPOGLYCEMIA PROTOCOL 01/29/25 21:30 02/28/25 21:29 Insulin Human Regular (humuLIN R 100 UNIT/ML 3ML) INSULIN SLIDING SCAL... ACHS SQ 01/30/25 07:30 03/01/25 07:29 01/30/25 12:30 6 UNIT Ketorolac Tromethamine (toRADol) 15 mg Q6H PRN IV MODERATE PAIN (4-6) IF NPO 01/29/25 21:30 02/03/25 21:29 Ketorolac Tromethamine (toRADol) 30 mg ONCE IVP 01/29/25 19:30 01/29/25 21:27 DC 01/29/25 19:34 30 MG Labetalol HCl (TRANdate 20MG SYG) 10 mg Q2H PRN IV SBP GREATER THAN 160 01/29/25 21:30 02/28/25 21:29 Lactulose (Constulose 20gm/ 30ml Udcup) 20 gm Q6H PRN PO CONSTIPATION 01/29/25 21:30 02/28/25 21:29 Lidocaine (Lidocaine Patch 4%) 1 each DAILY TP 01/30/25 09:00 01/29/25 23:42 DC Lidocaine (Lidocaine Patch 4%) 1 each Q24H TP 01/29/25 23:40 02/28/25 23:39 01/30/25 00:21 1 EACH Magnesium Sulfate 50 ml @ 0 mls/hr PROTOCOL PRN IV MAGNESIUM PROTOCOL 01/29/25 21:30 02/28/25 21:29 Methylprednisolone Sodium Succinate (Solu-medROL 40MG) 40 mg ONCE IVP 01/29/25 19:30 01/29/25 21:30 DC 01/29/25 19:34 40 MG Morphine Sulfate (morPHINE 2MG SYG) 2 mg ONCE IM 01/29/25 16:00 01/29/25 20:00 DC 01/29/25 15:50 2 MG Ondansetron HCl (zoFRAN 4MG INJ) 4 mg Q6H PRN IVP NAUSEA/VOMITING 01/29/25 21:30 02/28/25 21:29 Potassium Chloride 100 ml @ 100 mls/hr AD PRN IV POTASSIUM PROTOCOL 01/29/25 21:30 02/28/25 21:29 Potassium Chloride (K-Dur/Klor-Con 20meq) 20 meq AD PRN PO POTASSIUM PROTOCOL 01/29/25 21:30 02/28/25 21:29 01/30/25 06:33 20 MEQ Potassium Chloride (KCl 10% Elixir 20meq/15ml) 20 meq AD PRN PO POTASSIUM PROTOCOL 01/29/25 21:30 02/28/25 21:29 Prednisone (deltaSONE/ oraSONE 20MG TAB) 20 mg BID PO 01/30/25 21:00 03/01/25 20:59 UNV Temazepam (restORIL 15 MG CAP) 15 mg HS PRN PO INSOMNIA/SLEEP 01/29/25 21:30 02/28/25 21:29 DIAGNOSTICS / RADIOLOGY: [ ] ASSESSMENT: Intractable lumbar back pain with radiculopathy affecting left lower extremity, POA Moderate to severe bilateral sacroiliac joint osteoarthritis, with mild bilateral hip and pubic symphyseal osteoarthritis, per left hip x-ray on 01/29/2025 Left leg edema, POA Lumbar paraspinal muscle spasm Leukocytosis Anemia Hyperglycemia Hypomagnesemia Acute on chronic kidney disease, GFR 74 Fluid overload/ elevated BNP Uncontrolled hypertension, POA Obesity, BMI 35.4 Chronic problem list: Hypertension, hyperlipidemia, arthritis, osteoporosis, obesity, asthma, osteoarthritis of the knee PLAN: - continuous telemetry monitoring and fall precautions. -CT lumbar reviewed Pelvis CT reviewed Hip/pelvis x-ray reviewed -Physical therapy to evaluate and treat. -discontinue Decadron. Start patient on cyclobenzaprine and prednisolone -Lidocaine patch 4% to lower back. -patient refused venous Doppler -UA negative -a.m. labs -PRN medications for: pain management, fever, N/V, constipation, hypertension. -Oxygen supplement as needed to maintain oxygen levels equal to or greater than 92% -Strict I&O. -Fluid restriction 1,200 mls in 24 hours. -Blood pressure checks every 4 hours and as needed. Home medication reconciled by AUTOMOTIVE MAINTENANCE TECHNICIAN 01/30/2025 -Glucometer checks before meals and at bedtime with insulin regular sliding scale. -Blood pressure checks every 4 hours and as needed. - Monitor renal and liver function. -Monitor electrolytes and treat accordingly PRN -GI and DVT prophylaxis -Further plan/orders per hospitalization course. ATTESTATION BY PHYSICIAN I have seen and examined the patient. I reviewed the documentation, medical decision making, and treatment plan as noted by the mid-level provider above. I agree with the findings and plan of care. ELICEO DESAI MD, KATARZYNA B [employer] Jan 30, 2025 12:58
[2025-01-30] MEDS: CYCLOBENZAPRINE HCL 10 MG TABLET PO SCH (13:30)
[2025-01-30] MEDS: PoTASSium chloRIDE 20MEQ ER 20 MEQ ERTAB PO ONE (13:31)
[2025-01-30] MEDS: SALMETEROL IH SCH (20:27)
[2025-01-30] MEDS: PILOCARPINE HCL 5 MG TABLET PO PRN (20:27)
[2025-01-30] MEDS: FLUTICASONE IH SCH (20:27)
[2025-01-31] VITALS: BP 127/72; PULSE 79; RESP 20; TEMP 98
[2025-01-31 04:00] VITALS: BP 130/63; PULSE 75; RESP 20; TEMP 98.1
[2025-01-31 05:42] LABS: IMMATURE GRANULOCYTE ABSOLUTE 0.13 K/uL (0-1); NUCLEATED RED BLOOD CELLS 0.0 % (0.0-0.19); PLATELET COUNT (AUTO) 176 K/uL (130-400); RED BLOOD CELL COUNT(AUTO) 3.81 MIL/uL (4.00-5.50); RED CELL DISTRIBUTION WIDTH 13.5 % (11.0-15.5); WHITE BLOOD COUNT (AUTO) 19.8 K/uL (4.8-10.8)
[2025-01-31 06:09] LABS: ASPARTATE AMINOTRANSFERASE 14.0 U/L (10-37); CREATININE 1.0 mg/dL (0.5-1.0); GLOMERULAR FILTR. RATE CALC 56.0 mL/min (>90); GLUCOSE,RANDOM 178.0 mg/dL (70-105); SODIUM SERUM 140.0 mmol/L (136-145); TOTAL PROTEIN, SERUM 7.2 g/dL (6.0-8.3); UREA NITROGEN, BLOOD 25.0 mg/dL (7-18)
[2025-01-31 07:55] VITALS: BP 144/69; PULSE 58; RESP 18; TEMP 98
[2025-01-31 08:38] VITALS: O2SAT 99
[2025-01-31] MEDS: EMPAGLIFLOZIN 10MG TABLET PO SCH (08:38)
[2025-01-31] MEDS: amLODIPine 5 MG TAB PO SCH (08:38)
[2025-01-31] MEDS: LISINOPRIL 10 MG TABLET PO SCH (08:38)
[2025-01-31] MEDS ORDERED: BACL10TA PO (08:47)
--- NOTE | 2025-01-31 11:04 | NUR ---
DCP: HOME Pt currently lives alone in her apartment. Pt receives $23 in [employer] benefits. Pt does have a walker in her home to ambulate. Pt has a provider that goes to her home 5.5 hrs a day to assist with all ADLs, home management, and meals. Pt attends [facility] in the morning. PCP is Dr. Kelly Arceo and uses [facility] for any RX needs. At [place] pt will want to go home and family will assist with transportation. Addendum: 01/31/25 at 1107 by CAMERON CUNNINGHAM SS Amended: Links added.
[2025-01-31 12:00] VITALS: BP 133/66; PULSE 64; RESP 19; TEMP 98.1
--- NOTE | 2025-01-31 12:34 | DS ---
Discharge Summary Hospital Course Summary: Patient is patient is a 84-year-old female with a history of hypertension hyperlipidemia obesity asthma osteoporosis and osteoarthritis who presented to [facility] ED for evaluation of severe mid low back pain and left-sided hip pain onset 01/28 after she lifted something heavy. She stated the pain starts on her low back and radiated to left hip down her left leg. She is unable to ambulate secondary to pain. She denied any direct injury to the area. ED provider reported that on physical examination the patient has restricted range motion of the left hip secondary to pain. She has some mild swelling to her left lower extremity. Distal pulses intact. An x-ray was performed which reveals no acute osseous injury however there is moderate to severe bilateral sacroiliac joint osteoarthritis with mild bilateral hip and pubic symphysis osteoarthritis. Pelvis CT was performed which read: "Moderate degenerative changes. No evidence of occult fracture. No hematoma. Left hip x-ray: 1. No acute osseous injury. 2. Moderate to severe bilateral sacroiliac joint osteoarthritis, with mild bilateral hip and pubic symphyseal osteoarthritis." In ED the patient received Flexeril, Solu-Medrol, Toradol, morphine. During her evaluation in the ED the patient's pain was more to the lower back therefore a CT lumbar was ordered. She was then moved to 3rd floor. Lumbar spine CT showed moderate lumbar spondylosis with multi level marginal osteophytes, facet arthroplasty and degenerative disc changes. Grade 1 degenerative retrolisthesis of L1 over L2. Mild diffuse osteopenia disc bulges from L1-L2 through L5-S1 and disc protrusion L3-L4. There is multiple neuro foraminal stenosis and spinal stenosis. Incidental and complicated colonic diverticulosis and mild sized cystitis. Patient stated she has been having chronic back pain and is not planning to do anything about her only main concern at the moment for the shooting pain that goes from her left lower back and shoots down the left leg. During examination patient showed symptoms of sciatica pain and was prescribed cyclobenzaprine 10 mg t.i.d. and prednisolone 40 mg b.i.d. Today the patient was examined in her room she appeared stable and was comfortable breathing on room air. She reported no pain and had a PT course done yesterday where she was able to walk without pain. She said she is ready to go home but wanted to get discharged in the afternoon so that her daughter can pick her up....................We had her do another PT course today and she is still reported no pain so we are discharging her on medication. Procedure(s): [facility] [address] [place] [id number] IMAGING REPORT Signed PATIENT: ANGELA GARRISON MR#: [id number] : 1940 SEX: F AGE: 84 LOCATION: EDH ORDER 153 STATUS: REG ER REPORT#: [id number] SERVICE 35 REASON: persistent pain unable to bear weight ORDERING PHYSICIAN: JESUS FERREIRA PROCEDURE: HIP U 2V L - HIP UNILAT 2-3VW LEFT EXAM: CR left hip, 3 View. CLINICAL HISTORY: persistent pain unable to bear weight COMPARISON: None provided. FINDINGS: Spondylosis of the visualized lower lumbar spine. Moderate to severe bilateral sacroiliac joint, and mild bilateral hip and pubic symphyseal joint osteoarthritis. There is no displaced fracture or evidence of periostitis. Atherosclerotic vascular calcifications are noted. IMPRESSION: 1. No acute osseous injury. 2. 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 /[place] DICTATED BY: EMILIANA HARDIN Jr., MD DATE: 01/29/251733 ELECTRONICALLY SIGNED BY: EMILIANA HARDIN Jr., MD DATE: 01/29/251733 [facility] [address] [address] IMAGING REPORT Signed PATIENT: ANGELA GARRISON MR#: [id number] : 1940 SEX: F AGE: 84 LOCATION: EDH ORDER 25 STATUS: REG ER REPORT#: [id number] SERVICE 1723 REASON: R/O OCCULT FRACTURE ORDERING PHYSICIAN: JESUS FERREIRA PROCEDURE: PELVIS WO - CT PELVIS W/O CONTRAST EXAM: CT Pelvis without Intravenous Contrast. CLINICAL HISTORY: R/O OCCULT FRACTURE TECHNIQUE: Axial computed tomography images of the pelvis without without intravenous contrast. CONTRAST: None. COMPARISON: None provided. FINDINGS: HIP JOINTS: No dislocation. The joint spaces are normal. BONES: Moderate degenerative changes. Involving both hips, both sacroiliac joints left side greater than right No evidence of occult fracture SOFT TISSUES: No hematoma IMPRESSION: 1. Moderate degenerative changes. 2. No evidence of occult fracture 3. No hematoma /[place] DICTATED BY: KAUSHAL STALEY MD DATE: 01/29/252033 ELECTRONICALLY SIGNED BY: KAUSHAL STALEY MD DATE: 01/29/252033 [place] [id number] IMAGING REPORT Signed PATIENT: ANGELA GARRISON MR#: [id number] : 1940 SEX: F AGE: 84 LOCATION: EDHIP ORDER 09 STATUS: ADM IN REPORT#: [id number] SERVICE 07 REASON: Herniated disc ? lumbar radiculopathy ORDERING PHYSICIAN: AIME RAMIREZ MD PROCEDURE: L SPIN WO - CT LUMBAR SPINE W/O CONTRAST EXAM: CT Lumbar Spine Without IV Contrast CLINICAL HISTORY: Patient presents with suspected herniated disc and lumbar radiculopathy. TECHNIQUE: Spiral axial CT images through the lumbar spine were acquired, reconstructed in axial and sagittal projections, and imaged using soft tissue and bone algorithms. Reformatted/MPR images were performed. CT scan is done according to ALARA (As Low as Reasonably Achievable). CONTRAST: None. COMPARISON: None provided. FINDINGS: No acute fracture. Normal lordotic curvature. Normal vertebral body and disc heights. Mild diffuse osteopenia. Moderate lumbar spondylosis with multilevel marginal osteophytes, facet arthropathy and degenerative disc disease. Grade I degenerative retrolisthesis of L1 over L2. Grade I degenerative anterolisthesis of L5 over S1. The surrounding soft tissues are unremarkable. Individual spinal levels are described as follows: T12-L1: No disc bulge or herniation. No neural foraminal, lateral recess or spinal canal stenosis. L1-L2: 4 mm diffuse disc bulge. Moderate right lateral recess and neural foraminal stenosis. No spinal canal stenosis. L2-L3: 4 mm diffuse disc bulge. Mild bilateral lateral recess and neural foramina stenosis. Mild spinal canal stenosis. L3-L4: 3-4 mm diffuse disc bulge with 5 mm postero-central disc protrusion causing thecal sac indentation. Bilateral ligamentum flavum and facet hypertrophy. Moderate bilateral lateral recess and mild bilateral neural foraminal stenosis. Mild spinal canal stenosis. L4-L5: 4 mm diffuse disc bulge. Mild bilateral lateral recess and neural foraminal stenosis. No spinal canal stenosis. L5-S1: 2 mm diffuse disc bulge. No lateral recess, neural foraminal or spinal canal stenosis. Atheromatous vascular calcification in the intra-abdominal aorta. Incidental uncomplicated colonic diverticulosis and mild cystitis. IMPRESSIONS: Moderate lumbar spondylosis with multilevel marginal osteophytes, facet arthropathy and degenerative disc disease. Grade I degenerative retrolisthesis of L1 over L2. Grade I degenerative anterolisthesis of L5 over S1. Mild diffuse osteopenia. Diffuse disc bulges from L1-L2 through L5-S1. 5 mm postero-central disc protrusion at L3-L4. Moderate right lateral recess and neural foraminal stenosis at L1-L2. Mild bilateral lateral recess and neural foraminal stenosis at L2-L3. Moderate bilateral lateral recess and mild bilateral neural foraminal stenosis at L3-L4. Mild bilateral lateral recess and neural foraminal stenosis at L4-L5. Mild spinal canal stenosis at L2-L3 and L3-L4. Incidental uncomplicated colonic diverticulosis and mild cystitis. /[place] DICTATED BY: EMILIANA HARDIN Jr., MD DATE: 01/30/2527 ELECTRONICALLY SIGNED BY: EMILIANA HARDIN Jr., MD DATE: 01/30/2527 Assessment/Plan: ASSESSMENT: Intractable lumbar back pain with radiculopathy affecting left lower extremity, POA Moderate to severe bilateral sacroiliac joint osteoarthritis, with mild bilateral hip and pubic symphyseal osteoarthritis, per left hip x-ray on 01/29/2025 Left leg edema, POA Lumbar paraspinal muscle spasm Leukocytosis Anemia Hyperglycemia Hypomagnesemia Acute on chronic kidney disease, GFR 74 Fluid overload/ elevated BNP Uncontrolled hypertension, POA Obesity, BMI 35.4 Chronic problem list: Hypertension, hyperlipidemia, arthritis, osteoporosis, obesity, asthma, osteoarthritis of the knee PLAN: Admission Date: 01/29/25 Discharge Date: 01/31/25 Disposition: Home Condition: Stable Activity: As tolerated Home medications: Continued Discharge medications: Medrol Dosepack, Tylenol Follow-up appointment: Follow up with PCP within 2-3 days after discharge Follow up with neurosurgeon within 2-3 weeks after discharge We reinforced the importance of medication adherence and follow-up appointments. Discharge Instructions: Patient advised to take her medication as directed Patient advised to continue doing physical therapy at home Patient advised not to lift heavy objects Call 911 or go to ER if you develop fever, severe abdominal pain or bloating, nausea or vomiting that does not improve, sudden shortness of breath or chest pain. Home Medications: Active Scripts Lisinopril (Lisinopril) 10 Mg Tablet, 10 MG PO DAILY, #60 TAB Prov:SOLITARIO ALLEN [employer]PENTER 07/07/24 Amlodipine Besylate (Norvasc 5Mg Tab) 5 Mg Tablet, 5 MG PO DAILY, #60 TAB Prov:ALEJANDROSOLITARIO B [employer]KHEAD CARPENTER 07/07/24 Reported Medications Baclofen (Baclofen) 10 Mg Tablet, 1 TAB PO TID for 30 Days, #90 TAB 0 Refills 01/31/25 Fluticasone/Salmeterol (Advair Hfa 230-21 Mcg Inhaler) 230 Mcg-21 Mcg/Actuation Hfa.aer.ad, 2 PUFF IH BID, #12 GM 0 Refills 07/04/24 Empagliflozin (Jardiance) 10 Mg Tablet, 1 TAB PO DAILY for 30 Days, #30 TAB 0 Refills 07/04/24 Pilocarpine HCl (Salagen) 5 Mg Tab, 1 TAB PO BID for 30 Days, #90 TAB 0 Refills 07/04/24 Atorvastatin Calcium (LIPITOR) 10 Mg Tab, 1 TAB PO HS for 30 Days, #30 TAB 0 Refills 07/04/24 Sertraline HCl (Sertraline HCl) 50 Mg Tablet, 50 MG PO DAILY, TAB 09/20/18 Discontinued Reported Medications Alendronate Sodium (Alendronate Sodium) 70 Mg Tablet, 1 TAB PO QWEEK for 28 Days, #4 TAB 0 Refills in the morning, at least 30 minutes before the first food, beverage, or medication of the day 07/04/24 Discontinued Scripts Levofloxacin (Levofloxacin) 500 Mg Tablet, 1 TAB PO DAILY for 7 Days, #7 TAB 0 Refills Prov:CIARASOLITARIO LOPEZ [employer]PENTER 07/07/24 Doxycycline Hyclate (Doxycycline Hyclate) 100 Mg Tablet, 100 MG PO BID, #8 TAB Prov:CIARASOLITARIO LOPEZ [employer]PENTER 07/07/24 Lactobacillus Rhamnosus GG (Culturelle) 15 Billion Cell Cap.sprink, 1 EACH PO DAILY, #60 CAP.SPRINK Prov:SOLITARIO ALLEN [employer]PENTER 07/07/24 Balsam Kelli/Boscobel Oil (Venelex Ointment) 60 Gm Oint...g., 0 GM TP BID, #60 TUBE bid to affected area Prov:CIARASOLITARIO LOPEZ [employer]PENTER 07/07/24 Time spent arranging discharge: 31-60 minutes ATTESTATION BY PHYSICIAN I have seen and examined the patient. I reviewed the documentation, medical decision making, and treatment plan as noted by the resident provider above. I agree with the findings and plan of care. ERICA MIGUEL MD, ABHINAV MD Jan 31, 2025 12:34
[2025-01-31] MEDS ORDERED: METH4TAB3 PO (15:10)
[2025-01-31] MEDS ORDERED: ACET650S14 RC (15:10)
--- NOTE | 2025-01-31 16:00 | NUR ---
DISCHARGE DC'D IV. NO COMPLICATIONS. STATES NO PAIN AT THIS TIME. AWARE TO FOLLOW UP WITH PCP IN 2-3 DAYS AND GO TO [facility] IN 2-3 WEEKS. AWARE TO NOT HEAVY LIFT. ANSWERED ALL QUESTIONS.
== END 2025-01-31 16:20 | disposition home or self-care (01) ==
LOC: EDH 14:02 → EDHIP 21:07 → 3DH 01-30 02:00
PROVIDERS: ADMIT Internal Medicine; ATTEND Internal Medicine
DX: M43.16 Spondylolisthesis, lumbar region (principal); R60.0 Localized edema; M62.830 Muscle spasm of back; D72.829 Elevated white blood cell count, unspecified; E87.70 Fluid overload, unspecified; E83.42 Hypomagnesemia; R79.89 Other specified abnormal findings of blood chemistry; I12.9 Hypertensive chronic kidney disease with stage 1 through stage 4 chronic kidney disease, or unspecified chronic kidney disease; N18.9 Chronic kidney disease, unspecified; D63.1 Anemia in chronic kidney disease; M16.0 Bilateral primary osteoarthritis of hip; M81.0 Age-related osteoporosis without current pathological fracture; J45.909 Unspecified asthma, uncomplicated; K57.30 Diverticulosis of large intestine without perforation or abscess without bleeding; E78.5 Hyperlipidemia, unspecified; E66.9 Obesity, unspecified; N17.9 Acute kidney failure, unspecified; G89.29 Other chronic pain; Z68.35 Body mass index [BMI] 35.0-35.9, adult; Z79.899 Other long term (current) drug therapy
CPT/HCPCS: 96372 ×3; 96374; 96375 ×2; 99285; 83036 ×2; 83735 ×3; 84484; 80048 ×2; 83880; 85025 ×2; 36415 ×3; 73502; 72131; 72192; 84443; 84100; 85027; 82948 ×6; 81001; 97161; 97116 ×2; 97530 ×2; 80053; G0378 ×43; J3475; J2270; J2919; J1885; J1815 ×2; J1100; J1650 ×2; 96365